=== PATIENT | female | born 1990 | race Caucasian/White ===

== ENCOUNTER 2017-03-23 14:21 | Emergency (ER) | payer OTHER ==
[~2017-03-23 14:21] MED LIST: BENADRYL25 MG PO; DICLEGIS DR 101 EACH PO; FIRST-PROGESTE200 MG VG; IBUPROFEN800 M1 PO; IRON325 M3 PO; NORCO 5-325 TA1 EACH PO; PRENATAL 19 TA1 EACH PO; PROGESTERONE200 M1 PO; PROMETHAZINE12.5 M2 PO; ZOFRAN ODT4 MG PO; depo-provera
[2017-03-23] MEDS ORDERED: ZOLOFT100 M1 PO (15:47)
[2017-03-23] MEDS ORDERED: XANAX0.5 M1 PO (15:48)
[2017-03-23 16:23] LABS: URINE BILIRUBIN NEGATIVE (NEG); URINE BLOOD NEGATIVE (NEG); URINE GLUCOSE (UA) NEGATIVE (NEG); URINE KETONE NEGATIVE (NEG); URINE LEUKOCYTE ESTERASE NEGATIVE (NEG); URINE NITRITE NEGATIVE (NEG); URINE PROTEIN NEGATIVE (NEG)
[2017-03-23 16:24] LABS: URINE APPEARANCE CLEAR; URINE COLOR YELLOW
[2017-03-23 16:46] LABS: BASO % 0.3 % (0-2); EOS % 0.4 % (0-7); HCT-HEMATOCRIT 37.1 % (34.0-49.0); HGB-HEMOGLOBIN 12.6 gm/dl (12.0-15.5); IMMATURE GRANULOCYTES ABSOLUTE 0.01 tho/cmm (0-0.03); IMMATURE GRANULOCYTES PERCENT 0.1 % (0-0.3); LYMPH % 26.6 % (20-45); LYMPH ABSOLUTE COUNT 1.8 tho/cmm (0.8-4.5); MCV (MEAN CELL VOLUME) 85.3 fl (82.0-96.0); MEAN PLATELET VOLUME 9.7 cmc (9.4-12.4); MONOCYTE ABSOLUTE COUNT 0.5 tho/cmm (0.0-1.2); NEUTROPHIL ABSOLUTE COUNT 4.4 tho/cmm (1.6-8.0); NEUTROPHIL-AUTOMATED 4.4 tho/cmm (1.6-8.0); NEUTROPHILS % 65.6 % (40-80); PLATELET COUNT 243 tho/cmm (150-450); RED BLOOD COUNT 4.35 mil/cmm (4.00-5.20); WHITE BLOOD COUNT 6.7 tho/cmm (4.0-10.0)
[2017-03-23 16:57] LABS: PREGNANCY-SERUM NEGATIVE (NEGATIVE)
[2017-03-23 16:59] LABS: ALBUMIN 3.8 g/dl (3.5-5.0); ALKALINE PHOSPHATASE 74 U/L (33-138); ALT/SGPT 16 U/L (12-78); ANION GAP 11 mmol/L (0-20); AST/SGOT 14 U/L (10-40); BILIRUBIN,TOTAL 0.8 mg/dl (0-1.5); BLOOD UREA NITROGEN 12 mg/dl (6-24); CALCIUM 8.5 mg/dl (8.5-10.5); CARBON DIOXIDE-VENOUS 27 mmol/L (22-32); CHLORIDE 108 mmol/l (96-110); CREATINE PHOSPHOKINASE (CPK) 83 U/L (21-215); CREATININE 0.76 mg/dl (0.50-1.10); GLUCOSE 84 mg/dL (70-110); POTASSIUM 3.7 mmol/L (3.7-5.1); SODIUM 142 mmol/L (135-145); eGFR VALUE FOR BLACK >90 mL/Min
[2017-03-23 17:02] LABS: TSH-THYROID STIMULATING HORM. 1.83 uIU/ml (0.40-3.80)
[2017-03-23 17:06] LABS: C-REACTIVE PROTEIN <0.3 mg/dl (0-0.9)
== END 2017-03-23 18:27 ==
LOC: EDMED 14:21
PROVIDERS: Emergency Medicine
DX: R53.1 Weakness (principal)

== ENCOUNTER 2017-03-31 10:28 | Observation (INO) | payer SELFPAY ==
[~2017-03-31 10:28] MED LIST changes: +XANAX0.5 M1 PO; +ZOLOFT100 M1 PO
[2017-03-31] MEDS ORDERED: DEPO-PROVE150 MG/11 IM (13:13)
[2017-03-31 14:01] LABS: BASO % 0.3 % (0-2); EOS % 0.6 % (0-7); HCT-HEMATOCRIT 38.5 % (34.0-49.0); HGB-HEMOGLOBIN 13.1 gm/dl (12.0-15.5); IMMATURE GRANULOCYTES ABSOLUTE 0.01 tho/cmm (0-0.03); IMMATURE GRANULOCYTES PERCENT 0.1 % (0-0.3); LYMPH % 32.2 % (20-45); LYMPH ABSOLUTE COUNT 2.2 tho/cmm (0.8-4.5); MCH (MEAN CORPUSCULAR HGB) 28.6 pg (28.0-32.0); MCV (MEAN CELL VOLUME) 84.1 fl (82.0-96.0); MEAN PLATELET VOLUME 9.8 cmc (9.4-12.4); MONO % 6.5 % (0-12); MONOCYTE ABSOLUTE COUNT 0.4 tho/cmm (0.0-1.2); NEUTROPHIL ABSOLUTE COUNT 4.1 tho/cmm (1.6-8.0); NEUTROPHIL-AUTOMATED 4.1 tho/cmm (1.6-8.0); NEUTROPHILS % 60.3 % (40-80); PLATELET COUNT 230 tho/cmm (150-450); RED BLOOD COUNT 4.58 mil/cmm (4.00-5.20); WHITE BLOOD COUNT 6.8 tho/cmm (4.0-10.0)
[2017-03-31 14:18] LABS: ALB/GLOB RATIO 0.9 (0.8-2.0); ALBUMIN 3.9 g/dl (3.5-5.0); ALKALINE PHOSPHATASE 70 U/L (33-138); ALT/SGPT 15 U/L (12-78); ANION GAP 11 mmol/L (0-20); AST/SGOT 12 U/L (10-40); BILIRUBIN,TOTAL 0.9 mg/dl (0-1.5); BLOOD UREA NITROGEN 14 mg/dl (6-24); CALCIUM 8.7 mg/dl (8.5-10.5); CARBON DIOXIDE-VENOUS 27 mmol/L (22-32); CHLORIDE 104 mmol/l (96-110); CREATINE PHOSPHOKINASE (CPK) 70 U/L (21-215); CREATININE 0.88 mg/dl (0.50-1.10); GLUCOSE 80 mg/dL (70-110); MAGNESIUM 2.1 mg/dl (1.8-2.6); SODIUM 138 mmol/L (135-145); eGFR VALUE FOR BLACK >90 mL/Min
[2017-03-31 14:26] LABS: ESR-ERYTHROCYTE SED RATE 9 mm/hr (0-20)
[2017-03-31 14:40] LABS: TSH-THYROID STIMULATING HORM. 1.92 uIU/ml (0.40-3.80)
[2017-03-31 21:03] LABS: URINE BILIRUBIN NEGATIVE (NEG); URINE BLOOD NEGATIVE (NEG); URINE GLUCOSE (UA) NEGATIVE (NEG); URINE KETONE NEGATIVE (NEG); URINE LEUKOCYTE ESTERASE NEGATIVE (NEG); URINE NITRITE NEGATIVE (NEG); URINE PROTEIN NEGATIVE (NEG); URINE SPECIFIC GRAVITY 1.015 (1.003-1.030)
[2017-03-31 21:04] LABS: URINE APPEARANCE CLEAR; URINE COLOR YELLOW
[2017-03-31 21:08] LABS: URINE AMORPHOUS 1+; URINE EPITHELIAL CELLS 0 /[HPF] (0-10); URINE RBC 0 /[HPF] (0-5); URINE WBC 0 /[HPF] (0-5)
== END 2017-04-02 15:50 ==
LOC: EDMED 10:28 → EMR2 14:53 → CAR1 19:51
PROVIDERS: Emergency Medicine; ADMIT Family Medicine
DX: R29.898 Other symptoms and signs involving the musculoskeletal system (principal); F43.12 Post-traumatic stress disorder, chronic; F32.9 Major depressive disorder, single episode, unspecified; F41.0 Panic disorder [episodic paroxysmal anxiety]; F43.9 Reaction to severe stress, unspecified; Z79.3 Long term (current) use of hormonal contraceptives; Z79.899 Other long term (current) drug therapy; Z88.0 Allergy status to penicillin; Z88.8 Allergy status to other drugs, medicaments and biological substances; Z91.410 Personal history of adult physical and sexual abuse; Z98.890 Other specified postprocedural states
CPT/HCPCS: A9577; G0378; G8979-GP-CL; G8980-GP-CL; G8987-GO-CK; G8988-GO-CJ; G8988-GO-CK; G8989-GO-CK; J2405; J7030